=== PATIENT | female | born 1960 | race Caucasian/White ===

== ENCOUNTER 2017-07-19 13:37 | Emergency (ER) | payer OTHER ==
[2017-07-19 13:38] VITALS: BP 127/59; PULSE 107; RESP 20; TEMP 98.3; O2SAT 98
== END 2017-07-19 21:35 | disposition left against medical advice (07) ==
LOC: NED 13:37
DX: J02.9 Acute pharyngitis, unspecified (principal); Z53.21 Procedure and treatment not carried out due to patient leaving prior to being seen by health care provider
CPT/HCPCS: 99281

== ENCOUNTER 2018-07-19 20:20 | Inpatient (IN) ==
--- NOTE | 2018-07-19 21:44 | XR ---
EXAM DATE: 07/19/2018 9:38 PM EST AGE/SEX: 58 years / Female INDICATIONS: . Shortness of breath. CLINICAL DATA: This is the patient's initial encounter. Patient reports that signs and symptoms have been present for 3 days and indicates a pain score of 0/10. MEDICAL/SURGICAL HISTORY: Carcinoma, lung. None. COMPARISON: [facility], XR CHEST PA AND LAT, 01/17/2018. . FINDINGS: AP and lateral views of the chest. Hyperaeration suggesting emphysema. Bilateral apical pulmonary opa city with a mixture of linear and nodular densities similar to the findings of 01/17/2018. No evidence of pleural effusion or pneumothorax. Cardiomediastinal silhouette within normal limits. CONCLUSION: Upper lung zone predominant bilateral pulmonary opacity that certainly has a component of chronic severiano g disease. The appearance is similar to the prior study of December 2017. Several nodular densities are seen bilaterally. Chest CT without contrast is recommended for further evaluation of the nodular den sities. Electronically signed by: David Ruiz MD Board Certified Radiologist 07/19/2018 9:43 PM EST
--- NOTE | 2018-07-19 21:53 | ED ---
HPI General Chief complaint: Respiratory Symptoms Stated complaint: Med clearance Time Seen by Provider: 07/19/18 21:13 Source: patient Mode of arrival: ambulatory Limitations: no limitations History of Present Illness HPI narrative: 58-year-old female came to the emergency room along with an [facility] staff. Patient was brought in as a Garrison act that [facility] but she has been coughing. Patient has history of TB. Patient says that she finished her 6- month course for TB medication 3 months ago. She got a card from department of health saying that she has done with her medications. She says this time the coughing started couple days back. She accounts it to "flu". She has not been tested for flu. She denies any fever or chills. Denies any night sweats. Denies any weight loss. Denies any hemoptysis. There was a note sent from [facility] saying that she requires chest x-ray to clear her for TB. Vital signs are stable. Patient is a smoker and says she has been smoking for past 50 years. Related Data Previous Rx's Medication Instructions Recorded ciprofloxacin HCl 500 mg PO Q12HR #10 tab 07/23/18 multivitamin with folic acid 1 tab PO DAILY #0 tab 07/23/18 [Thera] nicotine 1 patch TRANSDERMAL DAILY #10 ea 07/23/18 Allergies Allergy/AdvReac Type Severity Reaction Status Date / Time aspirin Allergy Severe Nausea/Vomi Verified 07/20/18 15:29 ting ibuprofen Allergy Severe Nausea/Vomi Verified 07/20/18 15:29 ting penicillin G Allergy Severe Hives Verified 07/20/18 15:29 Review of Systems ROS: all other systems reviewed are negative [facility] Medical History Medical History Lung cancer (Acute) Social History Social History Substance History: No History of Abuse Second Hand Smoke Exposure: No Smoking Status: Current every day smoker Tobacco Type: Cigarettes How Often Do You Have a Drink Containing Alcohol: 2 to 3 times a week Recent Travel in [facility] within the Last 8 Weeks: No Recent Out of Country Travel within the Last 8 Weeks: No Exam Narrative Exam Narrative: GENERAL: Awake, alert, anxious, emaciated, no obvious distress SKIN: Focused skin assessment warm/dry. Emaciated HEAD: Atraumatic. Normocephalic. EYES: Pupils equal and round. No scleral icterus. No injection or drainage. ENT: No nasal bleeding or discharge. Mucous membranes pink and moist. NECK: Trachea midline. No JVD. CARDIOVASCULAR: Regular rate and rhythm. No murmur appreciated. RESPIRATORY: No accessory muscle use. Clear to auscultation. Breath sounds equal bilaterally. GASTROINTESTINAL: Abdomen soft, non-tender, nondistended. Hepatic and splenic margins not palpable. MUSCULOSKELETAL: No obvious deformities. No clubbing. No cyanosis. No edema. NEUROLOGICAL: Awake and alert. No obvious cranial nerve deficits. Motor grossly within normal limits. Normal speech. PSYCHIATRIC: Appropriate mood and affect; insight and judgment normal. Course Initial Documented Vital Signs Pulse Rate 85 07/19/18 22:20 Respiratory Rate 16 07/19/18 22:20 Blood Pressure 101/56 L 07/19/18 22:20 Pulse Oximetry 88 L 07/19/18 22:20 Last Documented Vital Signs Temperature 98.0 F 07/23/18 07:53 Pulse Rate 80 07/23/18 07:53 Respiratory Rate 20 07/23/18 07:53 Blood Pressure 121/66 07/23/18 07:53 Pulse Oximetry 95 07/23/18 07:53 Medical Decision Making [facility] Narrative Medical decision making narrative: 9:52 PM chest x-ray was ordered which has been read abnormal by the radiologist. They requested a CT scan without contrast. I have ordered this and awaiting for the CT to be done and resulted. Patient is currently on respiratory isolation. 12:[address] scan also is abnormal. There is no old CT scans to compare with. Patient was hypoxic upon arrival. I've ordered a dose of albuterol and discussed the case with the hospitalist was accepted the patient since patient can certainly be a reactivation of TB. She will need to be seen by ID specialist to determine further workup and course. The [facility] staff was notified about this. Patient's Garrison act has been included in her chart. Medical Screen Exam Complete: Yes Emergency Medical Condition: Yes Lab Data Result diagrams: 07/21/18 06:20 07/21/18 06:20 Lab Results 07/20/18 07/20/18 07/21/18 Range/Units 00:30 00:30 06:20 WBC 6.8 6.4 (4.0-11.0) th/mm3 RBC 4.74 4.84 (4.00-5.30) mil/mm3 Hgb 15.4 H 15.5 H (11.6-15.3) gm/dL Hct 45.3 45.9 (35.0-46.0) % MCV 95.7 94.9 (80.0-100.0) fL MCH 32.6 32.1 (27.0-34.0) pg MCHC 34.0 33.9 (32.0-36.0) % RDW 16.7 16.7 (11.6-17.2) % Plt Count 436 434 (150-450) th/mm3 MPV 8.4 8.5 (7.0-11.0) fL Neut % (Auto) 30.2 44.3 (16.0-70.0) % Lymph % (Auto) 45.6 H 29.6 (9.0-44.0) % Stanton % (Auto) 18.1 H 20.5 H (0.0-8.0) % Eos % (Auto) 5.2 H 3.7 (0.0-4.0) % Baso % (Auto) 0.9 1.9 (0.0-2.0) % Neut # (Auto) 2.1 2.8 (1.8-7.7) th/mm3 Lymph # (Auto) 3.1 1.9 (1.0-4.8) th/mm3 Stanton # (Auto) 1.2 H 1.3 H (0.0-0.9) th/mm3 Eos # (Auto) 0.4 0.2 (0.0-0.4) th/mm3 Baso # (Auto) 0.1 0.1 (0.0-0.2) th/mm3 WBC Differential . . Differential Comment Auto diff final Auto diff final Sodium 139 (136-145) meq/L Potassium 3.5 (3.5-5.1) meq/L Chloride 98 (98-107) meq/L Carbon Dioxide 32.9 H (21.0-32.0) meq/L Anion Gap 8 (5-15) meq/L BUN 5 L (7-18) mg/dL Creatinine 0.42 L (0.50-1.00) mg/dL Estimated GFR Greater than 89 (>89) mL/min Random Glucose 88 (74-106) mg/dL Calcium 8.1 L (8.5-10.1) mg/dL Magnesium (1.5-2.5) mg/dL Total Bilirubin (0.2-1.0) mg/dL AST (15-37) U/L ALT (10-53) U/L Alkaline Phosphatase (45-117) U/L Total Protein (6.4-8.2) g/dL Albumin (3.4-5.0) g/dL 07/21/18 Range/Units 06:20 WBC (4.0-11.0) th/mm3 RBC (4.00-5.30) mil/mm3 Hgb (11.6-15.3) gm/dL Hct (35.0-46.0) % MCV (80.0-100.0) fL MCH (27.0-34.0) pg MCHC (32.0-36.0) % RDW (11.6-17.2) % Plt Count (150-450) th/mm3 MPV (7.0-11.0) fL Neut % (Auto) (16.0-70.0) % Lymph % (Auto) (9.0-44.0) % Stanton % (Auto) (0.0-8.0) % Eos % (Auto) (0.0-4.0) % Baso % (Auto) (0.0-2.0) % Neut # (Auto) (1.8-7.7) th/mm3 Lymph # (Auto) (1.0-4.8) th/mm3 Stanton # (Auto) (0.0-0.9) th/mm3 Eos # (Auto) (0.0-0.4) th/mm3 Baso # (Auto) (0.0-0.2) th/mm3 WBC Differential Differential Comment Sodium 138 (136-145) meq/L Potassium 3.5 (3.5-5.1) meq/L Chloride 99 (98-107) meq/L Carbon Dioxide 33.0 H (21.0-32.0) meq/L Anion Gap 6 (5-15) meq/L BUN 5 L (7-18) mg/dL Creatinine 0.48 L (0.50-1.00) mg/dL Estimated GFR Greater than 89 (>89) mL/min Random Glucose 91 (74-106) mg/dL Calcium 8.9 D (8.5-10.1) mg/dL Magnesium 1.9 (1.5-2.5) mg/dL Total Bilirubin 0.8 (0.2-1.0) mg/dL AST 10 L (15-37) U/L ALT 15 (10-53) U/L Alkaline Phosphatase 145 H (45-117) U/L Total Protein 7.7 (6.4-8.2) g/dL Albumin 3.0 L (3.4-5.0) g/dL Imaging Data Radiologist's impression: Chest X-Ray 07/19/18 21:20 CONCLUSION: Upper lung zone predominant bilateral pulmonary opacity that certainly has a component of chronic lung disease. The appearance is similar to the prior study of December 2017. Several nodular densities are seen bilaterally. Chest CT without contrast is recommended for further evaluation of the nodular densities. Chest CT 07/19/18 21:47 CONCLUSION: 1. Bilateral upper lobe nodular infiltrates with underlying chronic disease. I have no prior CT scans of the chest for comparison. The nodular densities likely are postinflammatory in nature, however, other etiologies cannot be completely excluded. A follow-up CT scan of the chest in 3-6 months is suggested to document stability. Discharge Plan Discharge Disposition Patient Disposition: ED Admit(ED Internal Use Only) Discharge Condition Condition: Good Discharge Order Discharge Orders: Discharge Order (Routine); Ordered 07/23/18 Ordered By: Julianna Larios ED Use Only Admit Order (Routine); Ordered 07/20/18 Ordered By: London Hobbs Physicians Team ED Provider: London Hobbs Primary Care Provider: Primary Care Physici,No Attending Provider: Julianna Larios Other Providers: Duarte Mohan ; [employer],Hum[employer] Status ED Status: Left Department Discharge Information Discharge Date/Time: 07/20/18 01:30
--- NOTE | 2018-07-19 23:50 | CT ---
EXAM DATE: 07/19/2018 11:35 PM EST AGE/SEX: 58 years / Female INDICATIONS: Abnormal chest x-ray; history of TB. CLINICAL DATA: This is the patient's initial encounter. Patient reports that signs and symptoms have been present for 1 day and indicates a pain score of Nonresponsive. MEDICAL/SURGICAL HISTORY: . TB None. RADIATION DOSE: 5.27 CTDI (mGy) COMPARISON: [facility], CHEST 2V AP&LAT, 07/19/2018. . TECHNIQUE: Multiple contiguous axial images were obtained through the chest without contrast. Image s were obtained in suspended respiration using multiple row detector helical technique. Using automa chago exposure control and adjustment of the mA and/or kV according to patient size, radiation dose was kept as low as reasonably achievable to obtain optimal diagnostic quality images. DICOM format imag e data is available electronically for review and comparison. FINDINGS: Lungs: Small nodular parenchymal opacities are seen involving the upper lobes bilaterally. The large st nodular component measures 1 cm on the right. There is a homogeneously calcified granuloma within the left upper lobe measuring 1.3 cm. Underlying interstitial changes noted particularly within the r ight upper lobe. Linear scarring within the medial right upper lobe.. Mediastinum: There is good visualization of the great vessels of the middle mediastinum. No evidenc e of mediastinal or hilar adenopathy/mass. Pleurae: No evidence of focal thickening or pleural effusion. Axillae: Unremarkable. Bony Structures: Advanced degenerative changes of the shoulders. Miscellaneous: The examination was extended to include the upper abdomen, and both adrenal glands ar e normal in size and configuration. CONCLUSION: 1. Bilateral upper lobe nodular infiltrates with underlying chronic disease. I have no prior CT scan s of the chest for comparison. The nodular densities likely are postinflammatory in nature, however, other etiologies cannot be completely excluded. A follow-up CT scan of the chest in 3-6 months is sug gested to document stability. Electronically signed by: Terence Hough MD Board Certified Radiologist 07/19/2018 11:49 PM EST
[2018-07-20] MEDS ORDERED: Acetaminophen 325 MG Tablet PO PRN (00:07)
[2018-07-20] MEDS ORDERED: Bisacodyl 10 MG Supp RECTAL PRN (00:07)
--- NOTE | 2018-07-20 00:56 | P.HPIM ---
History of Present Illness Primary Care Physician: No Primary Care Physician History of Present Illness: This is a 58-year-old female with a PMH of Tobacco Abuse and h/o TB who was brought to the ER from [facility] under Garrison Act for evaluation of cough and clearance for TB. Per pt she completed 6 month treatment course for TB approx 3-4 months ago, states she received a card from the [facility] showing completion of treatment. Now w/ cough x2-3 days. No fever, chills, night sweats or chest pain. On arrival, BP 101/56, HR 85, O2 sat 88% on RA. ESR with upper lung zone bilateral pulmonary opacities, likely component of chronic lung disease similar to previous study, several nodular densities bilaterally recommendation for CT. CT Chest with bilateral upper lobe nodular infiltrates with chronic disease, likely postinflammatory however unable to exclude other etiologies. Currently on airborne isolation. Diagnosis (1) Hypoxia: (2) H/O TB (tuberculosis): (3) Tobacco abuse: Inpatient Certification Inpatient Certification: I certify that the inpatient services were ordered in accordance with Medicare regulations governing the order. This includes certification that hospital inpatient services are reasonable and necessary and in the case of services not specified as inpatient-only under 42 CFR 419.22(n), that they are appropriately provided as inpatient services in accordance to with the 2-midnight benchmark under 43 CFR 412.3(e) Estimated Total Length of Stay (Days): 2 Plans for Post Hospital Care: Not yet determined Review of Systems PAST FAMILY HISTORY: Reviewed. No h/o DM or CAD Review of Systems: all other systems reviewed are negative [facility] Medical History Medical History Lung cancer (Acute) Social History Social History Substance History: No History of Abuse Second Hand Smoke Exposure: Yes Smoking Status: Current every day smoker Tobacco Type: Cigarettes How Often Do You Have a Drink Containing Alcohol: 4 or more times a week Recent Travel in [facility] within the Last 8 Weeks: No Recent Out of Country Travel within the Last 8 Weeks: No Immunization History Tetanus Immunization: Unsure Medications and Allergies Allergies Allergy/AdvReac Type Severity Reaction Status Date / Time aspirin Allergy Severe Unverified 01/08/17 22:36 ibuprofen Allergy Severe Unverified 01/08/17 22:36 penicillin G Allergy Severe Hives Unverified 01/08/17 22:36 Active Medications: Active Medications Acetaminophen (Tylenol) 650 mg PO Q4H PRN PRN Reason: Temp > 100.4 Al Hydroxide/Mg Hydroxide (Milk Of Magnesia Liq) 30 ml PO Q12H PRN PRN Reason: Mild Constipation Albuterol (Duoneb Neb (Prn)) 1 ampul NEB Q4HR NEB PRN PRN Reason: SOB/WHEEZING Bisacodyl (Dulcolax Supp) 10 mg RECTAL DAILY PRN PRN Reason: SEVERE CONSITIPATION Budesonide/Formoterol Fumarate (Symbicort 160/4.5 Mcg Inh) 2 puff INH BID JOZEF Levofloxacin/Dextrose (Levaquin 750 Mg Premix Inj) 150 mls @ 100 mls/hr IV.SIG Q24H JOZEF Lactulose (Lactulose Liq) 30 ml PO DAILY PRN PRN Reason: SEVERE CONSITIPATION Ondansetron HCl (Zofran Inj) 4 mg IV.PUSH Q6H PRN PRN Reason: NAUSEA OR VOMITING Senna/Docusate Sodium (Nenita-Colace) 1 tab PO BID JOZEF Sennosides (Senokot) 17.2 mg PO Q12H PRN PRN Reason: Moderate Constipation Sodium Chloride (Ns Flush) 2 ml IV.FLUSH BID JOZEF Sodium Chloride (Ns Flush) 2 ml IV.FLUSH PRN PRN PRN Reason: FLUSH AFTER USING IV ACCESS Physical Exam Vital signs: Vital Signs 07/19/18 22:20 07/19/18 22:31 07/20/18 00:44 Pulse Rate 85 80 Respiratory Rate 16 16 Blood Pressure 101/56 L 101/56 L Pulse Oximetry 88 L 89 L 96 Intake & Output 07/19/18 07/19/18 07/20/18 06:59 18:59 06:59 Weight 39.916 kg Narrative: PE: GENERAL: Middle-aged female in no acute distress, mildly anxious. SKIN: Focused skin assessment warm and dry. HEENT: PERRLA, EOMI. No scleral icterus or conjunctival pallor. No lid lag or facial droop. CARDIOVASCULAR: Regular rate and rhythm. No obvious murmurs to auscultation. No chest tenderness to palpation. RESPIRATORY: No obvious rhonchi or wheezing. Clear to auscultation. Breath sounds equal bilaterally. GASTROINTESTINAL: Abdomen soft, non-tender, nondistended. BS normal. MUSCULOSKELETAL: Extremities without clubbing, cyanosis, or edema. No obvious deformities. NEUROLOGICAL: Awake, alert and oriented x4. No focal neurologic deficits. Moving both upper and lower extremities spontaneously. PSYCHIATRIC: Appropriate mood and affect. Insight and judgment normal. Results Imaging Impressions Chest X-Ray 07/19/18 21:20 CONCLUSION: Upper lung zone predominant bilateral pulmonary opacity that certainly has a component of chronic lung disease. The appearance is similar to the prior study of December 2017. Several nodular densities are seen bilaterally. Chest CT without contrast is recommended for further evaluation of the nodular densities. Chest CT 07/19/18 21:47 CONCLUSION: 1. Bilateral upper lobe nodular infiltrates with underlying chronic disease. I have no prior CT scans of the chest for comparison. The nodular densities likely are postinflammatory in nature, however, other etiologies cannot be completely excluded. A follow-up CT scan of the chest in 3-6 months is suggested to document stability. Caprini VTE Risk Assessment Caprini VTE Risk Assessment: No/Low Risk (score <= 1) Caprini Risk Assessment Model: Point Value = 1 Point Value = 2 Point Value = 3 Point Value = 5 Age 41-60 Minor surgery BMI > 25 kg/m2 Swollen legs Varicose veins or History of unexplained or recurrent spontaneous Oral contraceptives or hormone replacement Sepsis (< 1 month) Serious lung disease, including pneumonia (< 1 month) Abnormal pulmonary function Acute myocardial infarction Congestive heart failure (< 1 month) History of inflammatory bowel disease Medical patient at bed rest Age 61-74 Arthroscopic surgery Major open surgery (> 45 min) Laparoscopic surgery (> 45 min) Malignancy Confined to bed (> 72 hours) Immobilizing plaster cast Central venous access Age >= 75 History of VTE Family history of VTE Factor V Leiden Prothrombin [id number] Lupus anticoagulant Anticardiolipin antibodies Elevated serum homocysteine Heparin-induced thrombocytopenia Other congenital or acquired thrombophilia Stroke (< 1 month) Elective arthroplasty Hip, pelvis, or leg fracture Acute spinal cord injury (< 1 month) Prophylaxis Regimen: Total Risk Factor Score Risk Level Prophylaxis Regimen 0-1 Low Early ambulation 2 Moderate Order ONE of the following: *Sequential Compression Device (SCD) *Heparin 5000 units SQ BID 3-4 Higher Order ONE of the following medications: *Heparin 5000 units SQ TID *Enoxaparin/Lovenox 40 mg SQ daily (WT < 150 kg, CrCl > 30 mL/min) *Enoxaparin/Lovenox 30 mg SQ daily (WT < 150 kg, CrCl > 10-29 mL/min) *Enoxaparin/Lovenox 30 mg SQ BID (WT < 150 kg, CrCl > 30 mL/min) AND/OR *Sequential Compression Device (SCD) 5 or more Highest Order ONE of the following medications: *Heparin 5000 units SQ TID (Preferred with Epidurals) *Enoxaparin/Lovenox 40 mg SQ daily (WT < 150 kg, CrCl > 30 mL/min) *Enoxaparin/Lovenox 30 mg SQ daily (WT < 150 kg, CrCl > 10-29 mL/min) *Enoxaparin/Lovenox 30 mg SQ BID (WT < 150 kg, CrCl > 30 mL/min) AND *Sequential Compression Device (SCD) Assessment and Plan (1) Hypoxia: Code(s): R09.02 - Hypoxemia Status: Acute (2) H/O TB (tuberculosis): Code(s): Z86.11 - Personal history of tuberculosis Status: Acute (3) Tobacco abuse: Code(s): Z72.0 - Tobacco use Status: Acute Plan A/P: 1. h/o TB: reports completing 6 month course of treatment approx 3-4 months ago w/ clearance from [facility], now w/ cough x2-[address] w/ bilateral upper lobe nodular densities, possibly chronic component/post inflammatory however no previous imaging for comparison. Concern for reactivation of TB, continue Airborne isolation, consult ID for further eval/ recommendations, check Sputum Culture and AFB 2. Hypoxia: O2 sat 88% on RA, DuoNeb prn, Symbicort, start Levaquin for empiric tx of PNA. Monitor O2 3. Garrison Act: arrived from [facility] under Garrison Act, in chart, consult Psych for further eval/recommendations. Ativan prn. 4. DVT Prophylaxis: SCD/Teds 5. Social work for d/c planning as needed. 6. Case discussed w/ ER physician at length, labs/records/imaging reviewed by me.
[2018-07-20 01:01] LABS: Baso # (Auto) 0.1 th/mm3 (0.0-0.2); Baso % (Auto) 0.9 % (0.0-2.0); Eos # (Auto) 0.4 th/mm3 (0.0-0.4); Eos % (Auto) 5.2 % (0.0-4.0); Hematocrit 45.3 % (35.0-46.0); Hemoglobin 15.4 gm/dL (11.6-15.3); Lymph # (Auto) 3.1 th/mm3 (1.0-4.8); Lymph % (Auto) 45.6 % (9.0-44.0); Mean Corpuscular Hemoglobin 32.6 pg (27.0-34.0); Mean Corpuscular Volume 95.7 fL (80.0-100.0); Mean Platelet Volume 8.4 fL (7.0-11.0); Mono # (Auto) 1.2 th/mm3 (0.0-0.9); Mono % (Auto) 18.1 % (0.0-8.0); Neut # (Auto) 2.1 th/mm3 (1.8-7.7); Neut % (Auto) 30.2 % (16.0-70.0); Platelet Count 436 th/mm3 (150-450); Red Blood Count 4.74 mil/mm3 (4.00-5.30); Red Cell Distribution Width 16.7 % (11.6-17.2); White Blood Count 6.8 th/mm3 (4.0-11.0)
[2018-07-20 01:39] LABS: Anion Gap 8 meq/L (5-15); Blood Urea Nitrogen 5 mg/dL (7-18); Calcium 8.1 mg/dL (8.5-10.1); Carbon Dioxide 32.9 meq/L (21.0-32.0); Chloride 98 meq/L (98-107); Glomerular Filtration Rate Greater Than 89 mL/min (>89); Glucose,Random 88 mg/dL (74-106); Potassium 3.5 meq/L (3.5-5.1); Sodium 139 meq/L (136-145)
[2018-07-20] MEDS: Budesonide-Formoterol 160/4.5 MCG 6 GM Inhaler INH SCH ×2 (09:24→21:01)
[2018-07-20] MEDS: Senna/Docusate Sodium 8.6/50 MG Tablet PO SCH ×2 (09:24→21:01)
--- NOTE | 2018-07-20 14:16 | MB ---
cc: Duarte Mohan MD DATE: 07/20/2018 REQUESTING PHYSICIAN: Maureen Cheek MD REASON FOR CONSULTATION: 1. Abnormal CT. 2. History of tuberculosis. HISTORY OF PRESENT ILLNESS: This is a 58-year-old white female who has been treated for TB. Her TB treatment was supervised by the Health Department. She completed TB therapy a few months ago per her report. The patient is a poor historian. She was Garrison Acted and was brought to the emergency department from [facility] because of respiratory symptoms. The patient states that she has been coughing for about a week. She states that she felt like she had the flu. She took cold medicines and cough medicine and this did not lead to improvement. She has no fever and she denies chills, nausea, vomiting, shortness of breath or sputum production. A sputum sample has been obtained to evaluate for TB. The patient had a chest x-ray, which shows bilateral pulmonary opacity predominantly at the upper lung zone that appears to have a component of chronic lung disease. Apparently similar to study of December 2017. A CT scan of the chest was performed, which shows again bilateral upper lobe nodular infiltrate with underlying chronic disease. She denies chest pain, night sweats, dysuria or diarrhea. She is afebrile and white blood cell count is normal. This consultation is requested because of the history of TB and current symptoms. PAST MEDICAL HISTORY: Tuberculosis, lung cancer. ALLERGIES: PENICILLIN, IBUPROFEN, ASPIRIN. MEDICATIONS: 1. Levaquin. 2. Lactulose. SOCIAL HISTORY: Positive alcohol use. The patient drinks alcohol daily. Positive tobacco. Denies substance abuse. The patient is homeless. She reports that she lives in the [facility]. FAMILY HISTORY: Noncontributory. REVIEW OF SYSTEMS: All systems have been reviewed and negative except for cough. PHYSICAL EXAMINATION: GENERAL: This is a cachectic female who is in no acute distress. She looks chronically ill. VITAL SIGNS: Temperature 98.3, BP 142/78, respirations 18, heart rate 76. HEENT: Head is atraumatic. Face has a red hue. Extraocular movements grossly intact. Pupils reactive to light. No icterus. No conjunctival erythema. Oropharynx: Moist mucosa. No visible lesions. NECK: Supple. No adenopathy or swelling. LUNGS: Coarse breath sounds with wheezing at the right base. HEART: Regular S1, S2. No murmurs audible. ABDOMEN: Bowel sounds present. Soft, no tenderness. No mass palpable. RECTAL: Not performed. EXTREMITIES: No clubbing, cyanosis or edema. Marked diffuse muscle wasting. SKIN: No rash. NEUROLOGIC: No gross focal finding. PSYCHIATRIC: The patient is calm and cooperative. LABORATORY DATA: WBC 6.8 with 45% lymphocytes, 3% neutrophils, 18% monocytes. Creatinine 0.42, estimated GFR greater than 89. Sodium 139. O2 saturation is 96% on room air. IMPRESSION: A patient with cough and abnormal CT scan of the lungs and abnormal chest x-ray. The patient has a history of tuberculosis treated and supervised by the [facility] which completed 6 months of treatment recently. The changes on the CAT scan and chest x-ray are probably residual changes from prior tuberculosis rather than active disease; however, a repeat sputum sample will be checked to see if there is positive acid fast bacilli. RECOMMENDATIONS: 1. Continue Levaquin for now. 2. Monitor sputum, AFB and also sputum routine culture. 3. Verify completion of treatment by the Health Department by obtaining records from [facility] on the patient. 4. Observe currently while awaiting the culture results. Thank you for this consultation. I will follow the patient's progress along with you and will make further recommendations on followup if necessary. Duarte Mohan MD FFD/es , 11:36 AM , 11:50 AM
--- NOTE | 2018-07-20 16:15 | P.PNIM ---
The pt said her cough improved. She wanted to know when she could go back to [facility]. ID consult appreciated. Continue antibiotics. Follow cultures.
--- NOTE | 2018-07-20 18:33 | P.CONPSY ---
Provisional Diagnosis Admission Date: July 20, 2018 00:06 Hooksett I.: Adjustment Disorder with mixed disturbance of emotions and conduct Alcohol abuse, uncomplicated Hooksett II.: def Hooksett III.: hypoxia, hx of recent TB infection History of Present Illness Service: psychiatry Consult date: 07/20/18 Reason for Consult: Bladimir Lenz Primary Care Provider: No Primary Care Physician Chief Complaint: "I fought with my old man and got so mad I called the police" History of Present Illness: Pt is a [id number] with a hx of alcohol use disorder and recent TB infection (s/p completed antibiotic treatmetn) admitted to hospitalist service for hypoxia.Pt was transferred to [facility] from [facility] under a BA taken out by KALI alleging that pt reported to officer suicidal ideation. Pt was transferred to [facility] due to hx of TB infection and cough. Pt states that she and her "old man" were drinking and got into an argument. She states that this prompted her paramour to get angry and leave pt alone. She states that she was distraught and very angry with paramour ("who does he think he is? Leaving a woman alone?" ) so she told [employer] police officer she was going to hurt herself. Pt states that this was untrue and that she was just mad and wanted to go to [facility] anyway to get into substance abuse treatment. She attributes actions to alcohol abuse. She reports having gotten a good night sleep and medical attention has been good for her and she is feeling much better. She states that she is no longer mad at boyfriend and adamantly denies SI/HI. clinical staff anesthesiologist reports that pt has been pleasant and has consistently denied SI. Pt states that she does plan on returning to [facility] for substance abuse treatment after discharged from hospital. "I really need to stop drinking so much." She denies psychosis, kasie, depression or anxiety. Reviewed pt's record and she has had numerous visits to [facility] over the years for alcohol intoxication and related issues. [facility] - History History Provided By: Patient - Medical History Medical History: Medical History (Last Updated 07/19/18 @ 22:25 by Harshal Gilmore RN) Lung cancer - Tobacco History Second Hand Smoke Exposure: No Tobacco Use In Past 30 Days: Yes Smoking Status: Current every day smoker Tobacco Type: Cigarettes - Alcohol History How Often Do You Have a Drink Containing Alcohol: 2 to 3 times a week - Substance Use History Substance History: No History of Abuse - Travel History Recent Travel in the [place] Within the Last 8 Weeks: No Recent Travel Out of the Country Within the Last 8 Weeks: No - Immunization History Tetanus Immunization: <5 Years Hx Influenza Vaccine This Season: No Medications and Allergies Active Medications: Active Medications Acetaminophen (Tylenol) 650 mg PO Q4H PRN PRN Reason: Temp > 100.4 Al Hydroxide/Mg Hydroxide (Milk Of Magnesia Liq) 30 ml PO Q12H PRN PRN Reason: Mild Constipation Albuterol (Duoneb Neb (Prn)) 1 ampul NEB Q4HR NEB PRN PRN Reason: SOB/WHEEZING Bisacodyl (Dulcolax Supp) 10 mg RECTAL DAILY PRN PRN Reason: SEVERE CONSITIPATION Budesonide/Formoterol Fumarate (Symbicort 160/4.5 Mcg Inh) 2 puff INH BID [facility] Last Admin: 07/20/18 09:24 Dose: Not Given Levofloxacin/Dextrose (Levaquin 750 Mg Premix Inj) 150 mls @ 100 mls/hr IV.SIG Q24H [facility] Last Infusion: 07/20/18 02:30 Dose: Infused Lactulose (Lactulose Liq) 30 ml PO DAILY PRN PRN Reason: SEVERE CONSITIPATION Lorazepam (Ativan Inj) 1 mg IV.PUSH Q2H PRN PRN Reason: AGITATION/WITHDRAWAL Ondansetron HCl (Zofran Inj) 4 mg IV.PUSH Q6H PRN PRN Reason: NAUSEA OR VOMITING Senna/Docusate Sodium (Nenita-Colace) 1 tab PO BID [facility] Last Admin: 07/20/18 09:24 Dose: Not Given Sennosides (Senokot) 17.2 mg PO Q12H PRN PRN Reason: Moderate Constipation Sodium Chloride (Ns Flush) 2 ml IV.FLUSH BID [facility] Last Admin: 07/20/18 09:24 Dose: Not Given Sodium Chloride (Ns Flush) 2 ml IV.FLUSH PRN PRN PRN Reason: FLUSH AFTER USING IV ACCESS Allergies Allergy/AdvReac Type Severity Reaction Status Date / Time aspirin Allergy Severe Nausea/Vomi Verified 07/20/18 15:29 ting ibuprofen Allergy Severe Nausea/Vomi Verified 07/20/18 15:29 ting penicillin G Allergy Severe Hives Verified 07/20/18 15:29 Home Medications Medication Instructions Recorded Confirmed Type No Known Home Medications 07/20/18 07/20/18 History Exam Vital signs: Vital Signs 07/19/18 22:20 07/19/18 22:31 07/20/18 00:44 Temperature Pulse Rate 85 80 Respiratory Rate 16 16 Blood Pressure 101/56 L 101/56 L Pulse Oximetry 88 L 89 L 96 07/20/18 06:00 07/20/18 08:00 07/20/18 15:20 Temperature 98.2 F 98.3 F 98.2 F Pulse Rate 74 76 74 Respiratory Rate 14 18 16 Blood Pressure 144/76 H 142/78 H 143/92 H Pulse Oximetry 96 92 L Intake & Output 07/19/18 07/20/18 07/20/18 18:59 06:59 18:59 Intake Total 150 / 150 Balance 150 / 150 Weight 39.916 kg Intake: IV 150 / 150 Levaquin 750 mg Premix Inj 150 150 / 150 ML @ 100 mls/hr IV.SIG Q24H [facility] Rx#:[id number] Other: Date of Last Bowel Movement 07/19/18 Mental Status Examination Appearance: Disheveled Consciousness: Alert Orientation: x4 Motor Activity: Other (lying in hospital bed) Speech: Unremarkable Language: Adequate Fund of Knowledge: Adequate Attention and Concentration: Adequate Memory: Unremarkable Mood: Appropriate, Good Affect: Appropriate, Euthymic Thought Process & Associations: Intact, Logical, Goal directed Thought Content: Appropriate Hallucination Type: None Delusion Type: None Suicidal Ideation: No Suicidal Plan: No Suicidal Intention: No Homicidal Ideation: No Homicidal Plan: No Homicidal Intention: No Assessment and Plan - Assessment (1) Adjustment disorder with mixed disturbance of emotions and conduct Code(s): F43.25 - Adjustment disorder with mixed disturbance of emotions and conduct Status: Acute (2) Alcohol abuse Code(s): F10.10 - Alcohol abuse, uncomplicated Status: Acute - Plan Plan: Estimated LOS: [] days Pt does not meet criteria for involuntary hospitalization at this time. She is not endorsing suicidal ideation or displaying behaviors that would suggest pt is a danger to self or others. Presentation most likely related to alcohol use and emotional stressor. Pt is agreeable to follow up with [facility] for substance abuse treatment once medical treatment is completed and therefore can be served by a less restrictive treatment. Contact for [facility] access is [phone]. [place] [employer] approval for release form completed and placed on chart. Justification for Continued Inpatient Stay: medical conditions
[2018-07-21 06:49] LABS: Baso # (Auto) 0.1 th/mm3 (0.0-0.2); Baso % (Auto) 1.9 % (0.0-2.0); Eos # (Auto) 0.2 th/mm3 (0.0-0.4); Eos % (Auto) 3.7 % (0.0-4.0); Hematocrit 45.9 % (35.0-46.0); Hemoglobin 15.5 gm/dL (11.6-15.3); Lymph # (Auto) 1.9 th/mm3 (1.0-4.8); Lymph % (Auto) 29.6 % (9.0-44.0); Mean Corpuscular HGB Conc 33.9 % (32.0-36.0); Mean Corpuscular Hemoglobin 32.1 pg (27.0-34.0); Mean Corpuscular Volume 94.9 fL (80.0-100.0); Mean Platelet Volume 8.5 fL (7.0-11.0); Mono # (Auto) 1.3 th/mm3 (0.0-0.9); Mono % (Auto) 20.5 % (0.0-8.0); Neut # (Auto) 2.8 th/mm3 (1.8-7.7); Neut % (Auto) 44.3 % (16.0-70.0); Platelet Count 434 th/mm3 (150-450); Red Blood Count 4.84 mil/mm3 (4.00-5.30); Red Cell Distribution Width 16.7 % (11.6-17.2); White Blood Count 6.4 th/mm3 (4.0-11.0)
[2018-07-21 07:17] LABS: Alanine Aminotransferase 15 U/L (10-53); Anion Gap 6 meq/L (5-15); Aspartate Aminotransferase 10 U/L (15-37); Blood Urea Nitrogen 5 mg/dL (7-18); Calcium 8.9 mg/dL (8.5-10.1); Chloride 99 meq/L (98-107); Glomerular Filtration Rate Greater Than 89 mL/min (>89); Glucose,Random 91 mg/dL (74-106); Magnesium 1.9 mg/dL (1.5-2.5); Potassium 3.5 meq/L (3.5-5.1); Sodium 138 meq/L (136-145)
[2018-07-21 07:18] LABS: Alkaline Phosphatase 145 U/L (45-117); Total Protein 7.7 g/dL (6.4-8.2)
[2018-07-21] MEDS: Budesonide-Formoterol 160/4.5 MCG 6 GM Inhaler INH SCH ×2 (09:03→22:47)
[2018-07-21] MEDS: Senna/Docusate Sodium 8.6/50 MG Tablet PO SCH ×2 (09:03→22:47)
--- NOTE | 2018-07-21 12:24 | P.PNIM ---
Subjective Interval history: The patient was feeling great and wanted to leave the hospital. She says her cough is improved. She says her bag is still over at [facility]. Discussed with nursing. Physical Exam Vital signs: Vital Signs 07/20/18 15:20 07/20/18 23:48 07/21/18 09:02 Temperature 98.2 F 97.9 F Pulse Rate 74 74 94 H Respiratory Rate 16 14 16 Blood Pressure 143/92 H 137/79 141/81 H Pulse Oximetry 92 L 94 L 95 07/21/18 12:05 Temperature 98.3 F Pulse Rate 76 Respiratory Rate 16 Blood Pressure 130/76 Pulse Oximetry 93 L Intake & Output 07/20/18 07/21/18 07/21/18 18:59 06:59 18:59 Intake Total 150 / 150 480 / 480 Balance 150 / 150 480 / 480 Intake: IV 150 / 150 Levaquin 750 mg Premix Inj 150 150 / 150 ML @ 100 mls/hr IV.SIG Q24H [facility] Rx#:[id number] Oral 480 / 480 Other: Date of Last Bowel Movement 07/19/18 07/21/18 Narrative: GENERAL: No acute distress. SKIN: Focused skin assessment warm and dry. HEENT: PERRLA, EOMI. No scleral icterus or conjunctival pallor. No lid lag or facial droop. CARDIOVASCULAR: Regular rate and rhythm. No obvious murmurs to auscultation. No chest tenderness to palpation. RESPIRATORY: Mild wheezing. Rhonchi at the left base. GASTROINTESTINAL: Abdomen soft, non-tender, nondistended. BS normal. MUSCULOSKELETAL: Extremities without clubbing, cyanosis, or edema. No obvious deformities. NEUROLOGICAL: Awake, alert and oriented x4. No focal neurologic deficits. Moving both upper and lower extremities spontaneously. Results Labs CBC & Chem 7: 07/21/18 06:20 07/21/18 06:20 Labs: Microbiology 07/20/18 11:12 Sputum - Oral Tracheal Aspirate Gram Stain - Final Assessment and Plan (1) Adjustment disorder with mixed disturbance of emotions and conduct: Code(s): F43.25 - Adjustment disorder with mixed disturbance of emotions and conduct Status: Acute (2) Alcohol abuse: Code(s): F10.10 - Alcohol abuse, uncomplicated Status: Acute Plan H/o TB/hypoxemia Reports completing 6 month course of treatment approx 3-4 months ago w/ clearance from [place], now w/ cough x2-[address] w/ bilateral upper lobe nodular densities, possibly chronic component/post inflammatory however no previous imaging for comparison. Concern for possible reactivation of TB, although unlikely. ID consult appreciated. -continue airborne isolation. -follow sputum culture and AFB. -continue IV Levaquin. -follow up with ID. -oxygen and nebs as needed. -continue Symbicort. -incentive spirometry. [place] [employer] Arrived from [facility] under [place] Act. Psych lifted [place] Act. -Ativan prn anxiety. -refer back to [facility] upon discharge. Alcohol abuse Does not appear to be withdrawing at this time. -monitor for withdrawal. -cessation instruction. DVT Prophylaxis: SCD/Teds Discharge Planning: Need ID clearance Progress Note: Quality VTE Deep Vein Thrombosis/Pulmonary Embolism Present on Admission: No
[2018-07-21] MEDS ORDERED: Potassium Chloride 25 MEQ Effervescent Tablet PO ONE (13:00)
[2018-07-21] MEDS ORDERED: Menthol 5.8 MG Lozenge BUCCAL PRN (13:34)
[2018-07-22] MEDS: Senna/Docusate Sodium 8.6/50 MG Tablet PO SCH ×2 (08:45→21:00)
[2018-07-22] MEDS: Budesonide-Formoterol 160/4.5 MCG 6 GM Inhaler INH SCH ×2 (08:45→21:01)
--- NOTE | 2018-07-22 11:47 | P.PNID ---
Subjective Remarks: Patient states she feels okay. Has nonproductive occasional cough. Denies chest pain. Denies night sweats. Afebrile. This is a 58-year-old white female who has been treated for TB. Her TB treatment [facility]. She completed TB therapy a few months ago. Brought to the emergency department from [facility] because of respiratory symptoms. The patient states that she has been coughing for about a week. She states that she felt like she had the flu. She took cold medicines and cough medicine and this did not lead to improvement. Past Medical History: PAST MEDICAL HISTORY: Tuberculosis, lung cancer. Allergies/Adverse Reactions: Allergies aspirin Allergy (Severe, Verified 07/20/18 15:29) Nausea/Vomiting stomach upset ibuprofen Allergy (Severe, Verified 07/20/18 15:29) Nausea/Vomiting stomach upset penicillin G Allergy (Severe, Verified 07/20/18 15:29) Hives Objective Vital Signs 07/21/18 12:05 07/21/18 16:42 07/21/18 20:00 Temperature 98.3 F 98.8 F 97 F L Pulse Rate 76 74 78 Respiratory Rate 16 14 18 Blood Pressure 130/76 197/63 H 130/76 Pulse Oximetry 93 L 93 L 94 L 07/22/18 00:00 07/22/18 04:00 07/22/18 08:33 Temperature 97.9 F Pulse Rate 77 Respiratory Rate 18 18 16 Blood Pressure 126/74 Pulse Oximetry 94 L Intake & Output 07/21/18 07/22/18 07/22/18 18:59 06:59 18:59 Intake Total 960 / 960 150 / 150 480 / 480 Balance 960 / 960 150 / 150 480 / 480 Intake: IV 150 / 150 Levaquin 750 mg Premix Inj 150 150 / 150 ML @ 100 mls/hr IV.SIG Q24H [facility] Rx#:[id number] Oral 960 / 960 480 / 480 Other: Date of Last Bowel Movement 07/21/18 07/21/18 07/22/18 # Bowel Movements 1 07/20/18 11:12 Sputum - Oral Tracheal Aspirate Acid Fast Bacilli Smear - Final No acid fast bacilli seen 07/20/18 11:12 Sputum - Oral Tracheal Aspirate Mycobacterial Culture - Pending 07/20/18 11:12 Sputum - Oral Tracheal Aspirate Gram Stain - Final 07/20/18 11:12 Sputum - Oral Tracheal Aspirate Sputum Culture - Preliminary Heavy growth normal respiratory ernestina at 24 hours Lab - Hematology Results 07/21/18 06:20 WBC 6.4 RBC 4.84 Hgb 15.5 H Hct 45.9 MCV 94.9 MCH 32.1 MCHC 33.9 RDW 16.7 Plt Count 434 MPV 8.5 Neut % (Auto) 44.3 Lymph % (Auto) 29.6 Christian % (Auto) 20.5 H Eos % (Auto) 3.7 Baso % (Auto) 1.9 Neut # (Auto) 2.8 Lymph # (Auto) 1.9 Christian # (Auto) 1.3 H Eos # (Auto) 0.2 Baso # (Auto) 0.1 WBC Differential . Differential Comment Auto diff final Lab - Chemistry Results 07/21/18 06:20 Sodium 138 Potassium 3.5 Chloride 99 Carbon Dioxide 33.0 H Anion Gap 6 BUN 5 L Creatinine 0.48 L Estimated GFR Greater than 89 Random Glucose 91 Calcium 8.9 D Magnesium 1.9 Total Bilirubin 0.8 AST 10 L ALT 15 Alkaline Phosphatase 145 H Total Protein 7.7 Albumin 3.0 L Imaging: ITS Impressions Chest X-Ray 07/19/18 21:20 CONCLUSION: Upper lung zone predominant bilateral pulmonary opacity that certainly has a component of chronic lung disease. The appearance is similar to the prior study of December 2017. Several nodular densities are seen bilaterally. Chest CT without contrast is recommended for further evaluation of the nodular densities. Chest CT 07/19/18 21:47 CONCLUSION: 1. Bilateral upper lobe nodular infiltrates with underlying chronic disease. I have no prior CT scans of the chest for comparison. The nodular densities likely are postinflammatory in nature, however, other etiologies cannot be completely excluded. A follow-up CT scan of the chest in 3-6 months is suggested to document stability. Physical Exam: PHYSICAL EXAMINATION: GENERAL: No acute distress. She looks chronically ill. HEENT: Head is atraumatic. Face has a red hue. Extraocular movements grossly intact. Pupils reactive to light. No icterus. No conjunctival erythema. Oropharynx: Moist mucosa. No visible lesions. NECK: Supple. No adenopathy or swelling. LUNGS: Coarse breath sounds with wheezing bilateral. HEART: Regular S1, S2. No murmurs audible. ABDOMEN: Bowel sounds present. Soft, no tenderness. No mass palpable. EXTREMITIES: No clubbing, cyanosis or edema. Marked diffuse muscle wasting. SKIN: No rash. NEUROLOGIC: No gross focal finding. PSYCHIATRIC: The patient is calm and cooperative. Assessment and Plan - Plan IMPRESSION: Patient with cough and abnormal CT scan of the lungs and abnormal chest x-ray. The patient has a history of tuberculosis treated and supervised by the [facility] which completed 6 months of treatment in February. AFB smear is negative. Residual lung scarring. Probable bronchitis in this patient who is a chronic smoker. RECOMMENDATIONS: Okay to discharge with p.o. ciprofloxacin 500 twice daily. Patient has bed at [facility]. Discussed with Dr Larios.
--- NOTE | 2018-07-22 17:13 | P.PNIM ---
Subjective Interval history: 58-year-old female admitted with productive cough and shortness of breath, hypoxic respiratory failure., Sent from [facility], out of concern for possible TB reactivation. Patient seen and examined, case discussed with Dr. Mohan who felt that she was clinically stable and not likely to have TB. Patient does not have a bed at [facility], and agrees to stay till tomorrow to see if she can be placed there tomorrow currently breathing is much improved, denies nausea vomiting fever chills cough Physical Exam Vital signs: Vital Signs 07/21/18 20:00 07/22/18 00:00 07/22/18 04:00 Temperature 97 F L Pulse Rate 78 Respiratory Rate 18 18 18 Blood Pressure 130/76 Pulse Oximetry 94 L 07/22/18 08:33 07/22/18 12:00 07/22/18 16:00 Temperature 97.9 F 98.4 F 98.9 F Pulse Rate 77 66 77 Respiratory Rate 16 18 16 Blood Pressure 126/74 137/88 132/79 Pulse Oximetry 94 L 97 96 Intake & Output 07/21/18 07/22/18 07/22/18 18:59 06:59 18:59 Intake Total 960 / 960 150 / 150 480 / 480 Balance 960 / 960 150 / 150 480 / 480 Intake: IV 150 / 150 Levaquin 750 mg Premix Inj 150 150 / 150 ML @ 100 mls/hr IV.SIG Q24H [facility] Rx#:[id number] Oral 960 / 960 480 / 480 Other: Date of Last Bowel Movement 07/21/18 07/21/18 07/22/18 # Bowel Movements 1 Narrative: Chronically ill-appearing thin 58-year-old white female Awake alert oriented no acute distress Heart S1-S2 regular Lungs coarse inspiratory expiratory wheeze with fair air movement Abdomen soft nondistended positive bowel sounds Extremities no clubbing cyanosis no edema no calf tenderness Results Labs CBC & Chem 7: 07/21/18 06:20 07/21/18 06:20 Labs: Microbiology 07/20/18 11:12 Sputum - Oral Tracheal Aspirate Gram Stain - Final 07/20/18 11:12 Sputum - Oral Tracheal Aspirate Sputum Culture - Final Heavy growth normal respiratory ernestina 07/20/18 11:12 Sputum - Oral Tracheal Aspirate Acid Fast Bacilli Smear - Final No acid fast bacilli seen Assessment and Plan (1) Adjustment disorder with mixed disturbance of emotions and conduct: Code(s): F43.25 - Adjustment disorder with mixed disturbance of emotions and conduct Status: Acute (2) Alcohol abuse: Code(s): F10.10 - Alcohol abuse, uncomplicated Status: Acute Plan ACUTE HYPOXIC RESP FAILURE improved, likely due to COPD exacerbation with acute bronchitis ACUTE EXACERBATION OF COPD W BRONCHITIS (ACUTE ON CHRONIC?)Complete course of p.o. Cipro, patient declines any inhalers as they make her nauseous and give her a headache HX OF TB s/p completion of therapy clinically stable DC isolation MARISELA BALTAZAR s/p pshyicatric evaluation and rescinding of MARISELA SONG CHRONIC ALCOHOLISMpatient was at [facility], she should return to [facility], but they do not have a bed today, will wait till tomorrow TOBACCO ABUSE ,NICOTINE ADDICTIONcontinue cessation, NicoDerm topically PULMONARY NODULES -should have an outpatient CT scan in 3-6 months to ensure resolution, needs to be counseled regarding tobacco cessation UNDERWEIGHT W BMI 17.8, with mild PROT SILVINA MALNUTRITION - supplementation, encourage diet dvt prophylaxis - scd, early ambulation Dispo dc am to [facility] Progress Note: Quality VTE Deep Vein Thrombosis/Pulmonary Embolism Present on Admission: No
[2018-07-22] MEDS ORDERED: Benzonatate 100 MG Capsule PO PRN (17:28)
[2018-07-22] MEDS: guaiFENesin 600 MG ER Tablet PO SCH (21:02)
[2018-07-23 07:54] VITALS: BP 121/66; PULSE 80; RESP 20; TEMP 98; O2SAT 95
[2018-07-23] MEDS ORDERED: Ciprofloxacin 500 MG Tablet PO SCH (09:00)
[2018-07-23] MEDS ORDERED: predniSONE 20 MG Tablet PO SCH (09:00)
[2018-07-23] MEDS: guaiFENesin 600 MG ER Tablet PO SCH (09:27)
[2018-07-23] MEDS: Senna/Docusate Sodium 8.6/50 MG Tablet PO SCH (09:28)
[2018-07-23] MEDS: Budesonide-Formoterol 160/4.5 MCG 6 GM Inhaler INH SCH (09:31)
--- NOTE | 2018-07-23 09:36 | P.DS ---
DS: Providers Date of admission: 07/20/18 00:06 Primary care physician: No Primary Care Physician Consults: 07/20/18 00:05 Consult to Infectious Diseases Routine Consulting Provider: Duarte Mohan Reason for Consultation: Abnormal CT, h/o TB CONSULT FOR AM Notified:: Service Spoke with:: shantell Date Notified:: 07/20/18 Time Notified:: 00:26 Ordering Provider: TWYLA Consult to Psychiatry Routine Consulting Provider: Samy Cardona Reason for Consultation: Garrison Act CONSULT FOR AM Spoke with:: blanquita Date Notified:: 07/20/18 Time Notified:: 00:45 Ordering Provider: TWYLA 07/22/18 08:54 HUB Only Consult Order Routine Consulting Provider: Casper Shirley Brief History from admission: This is a 58-year-old female with a PMH of Tobacco Abuse and h/o TB who was brought to the ER from [facility] under Garrison Act for evaluation of cough and clearance for TB. Per pt she completed 6 month treatment course for TB approx 3-4 months ago, states she received a card from the [facility] showing completion of treatment. Now w/ cough x2-3 days. No fever, chills, night sweats or chest pain. On arrival, BP 101/56, HR 85, O2 sat 88% on RA. ESR with upper lung zone bilateral pulmonary opacities, likely component of chronic lung disease similar to previous study, several nodular densities bilaterally recommendation for CT. CT Chest with bilateral upper lobe nodular infiltrates with chronic disease, likely postinflammatory however unable to exclude other etiologies. Currently on airborne isolation. DS: Diagnosis Discharge Diagnosis (1) Adjustment disorder with mixed disturbance of emotions and conduct: Status: Acute (2) Alcohol abuse: Status: Acute DS: Summary Patient was admitted and continued on empiric IV antibiotics and seen in consultation by infectious disease. Infectious disease felt the patient clinically was stable and not likely to have recurrence of TB. AFB smears were negative. He recommended continuation of empiric antibiotics for treatment of acute on chronic bronchitis with COPD exacerbation. Patient was treated with a bit of steroids she adamantly refused any kind of inhalers because they made her sick to her stomach, and patient was awaiting a bed at [facility] but they did not have any beds available so she was agreeable to being discharged home and outpatient follow-up when [facility] has a bed available. She was counseled at length regarding importance of follow-up, tobacco cessation, follow-up outpatient CT scan in 3-6 months to ensure resolution and assess pulmonary nodules. Patient had initially been Garrison acted, psychiatry evaluated the patient and rescinded the Garrison act. She was clinically stable for discharge home and outpatient follow-up. Discharge diagnosis Acute hypoxic respiratory failure Acute exacerbation of COPD with acute bronchitis History of tuberculosis Chronic alcoholism Tobacco abuse with nicotine addiction Pulmonary nodules Underweight status with BMI 17.8, and mild protein calorie malnutrition Time Spent with Patient Total time spent providing and/or coordinating discharge services: Greater than 30 minutes Status at Discharge Functional status at discharge: independent ambulation Overall status at discharge: patient is progressing back to baseline Quality: VTE Deep Vein Thrombosis/Pulmonary Embolism Present on Admission: No Exam Narrative Exam Narrative: Thin cachectic appearing 58-year-old chronically ill female Awake alert oriented no acute distress agitated Heart S1-S2 regular Lungs with fair inspiratory expiratory wheeze no rhonchi no dullness to percussion back exam is no CVA tenderness or mass abdomen soft flat nondistended positive bowel sounds Extremities positive clubbing no cyanosis no edema Results Impressions ITS Impressions Chest X-Ray 07/19/18 21:20 CONCLUSION: Upper lung zone predominant bilateral pulmonary opacity that certainly has a component of chronic lung disease. The appearance is similar to the prior study of December 2017. Several nodular densities are seen bilaterally. Chest CT without contrast is recommended for further evaluation of the nodular densities. Chest CT 07/19/18 21:47 CONCLUSION: 1. Bilateral upper lobe nodular infiltrates with underlying chronic disease. I have no prior CT scans of the chest for comparison. The nodular densities likely are postinflammatory in nature, however, other etiologies cannot be completely excluded. A follow-up CT scan of the chest in 3-6 months is suggested to document stability. Discharge Plan Discharge Disposition Patient Disposition: 01 Discharge Home Discharge Condition Condition: Good Discharge Order Discharge Orders: Discharge Order (Routine); Ordered 07/23/18 Ordered By: Julianna Larios Physicians Team Primary Care Provider: Primary Care Timmy,Denia Attending Provider: Julianna Larios Other Providers: Duarte Mohan ; [employer] Rxs /Orders / Referrals /Forms Prescriptions: New nicotine 14 mg/24 hr Patch 24 Hour 1 patch Transdermal DAILY Qty: 10 RF: 0 ciprofloxacin HCl 500 mg Tablet 500 mg PO Q12HR Qty: 10 RF: 0 multivitamin with folic acid [Thera] 400 mcg Tablet 1 tab PO DAILY Qty: 0 RF: 0 Referrals: Primary Care Denia Warner [Primary Care Provider] - See Instructions ( Please call the physician's office to book the appointment to be seen within [1 week].) Discharge Instructions Patient Printed Instructions: Hypoxia (ED) Additional Instructions: Your Health Problems: hypoxia Goals to Promote Your Health: * To prevent worsening of your condition * To maintain your health at the optimal level Directions to Meet Your Goals: * Take your medications as prescribed * Follow your dietary instruction * Follow activity as directed * Keep your appointments as scheduled * Take your immunizations and boosters as scheduled * If your symptoms worsen call your PCP * If no PCP go to Urgent Care or Emergency Room Smoking is dangerous to your health. Avoid second hand smoke. You may reach the 24-hour crisis hotline for domestic abuse at . Status ED Status: Left Department Discharge Information Discharge Date/Time: 07/23/18 10:40
== END 2018-07-23 10:40 | disposition home or self-care (01) | DRG 190 ==
LOC: NEPE 20:20 → NEDA 07-20 00:06 → NEPHCDU 07-20 01:30 → NEPGCP 07-23 04:11
PROVIDERS: ADMIT Internal Medicine; ATTEND Internal Medicine
DX: Z86.11 Personal history of tuberculosis; R91.8 Other nonspecific abnormal finding of lung field; E44.1 Mild protein-calorie malnutrition; J44.0 Chronic obstructive pulmonary disease with (acute) lower respiratory infection; F43.25 Adjustment disorder with mixed disturbance of emotions and conduct; J42 Unspecified chronic bronchitis; Z59.0 Homelessness; Z68.1 Body mass index [BMI] 19.9 or less, adult; F10.20 Alcohol dependence, uncomplicated; F17.210 Nicotine dependence, cigarettes, uncomplicated; J96.01 Acute respiratory failure with hypoxia; J20.9 Acute bronchitis, unspecified; J44.1 Chronic obstructive pulmonary disease with (acute) exacerbation
CPT/HCPCS: 71020; 71046; 71250; 80048; 80053; 83735; 85025; 87015; 87070; 87116; 87205; 87206; 99285; J1956; J7506; J7512